=== PATIENT | male | born 1985 ===

== ENCOUNTER 2016-08-23 21:13 | Emergency (ER) | payer SELFPAY ==
[2016-08-23 21:40] VITALS: BP 136/84; PULSE 80; RESP 20; TEMP 97.9; O2SAT 98
[2016-08-23] MEDS ORDERED: Naproxen 550 mg Tab PO STA ×2 (22:16→22:18)
--- NOTE | 2016-08-23 22:33 | C.PDOC ---
History Of Present Illness A 31 year old male c/o painful lump to the left groin since yesterday. Patient denies trauma, fever, chills, dysuria, hemturia, abdominal pain, nausea, vomiting, or any other complaints. Time Seen by Provider: 08/23/16 21:58 Chief Complaint (Nursing): Abnormal Skin Integrity History Per: Patient History/Exam Limitations: no limitations Onset/Duration Of Symptoms: Days Current Symptoms Are (Timing): Still Present Severity: Mild Additional History Per: Patient Past Medical History Reviewed: Historical Data, Nursing Documentation, Vital Signs Vital Signs: Last Vital Signs Temp 97.9 F 08/23/16 21:37 Pulse 80 08/23/16 21:37 Resp 20 08/23/16 21:37 BP 136/84 08/23/16 21:37 Pulse Ox 98 08/24/16 01:52 Family History: States: Unknown Family Hx - Social History Hx Alcohol Use: Yes Hx Substance Use: No - Immunization History Hx Tetanus Toxoid Vaccination: No Hx Influenza Vaccination: No Hx Pneumococcal Vaccination: No Review Of Systems Except As Marked, All Systems Reviewed And Found Negative. Constitutional: Negative for: Fever, Chills, Other (Trauma) Gastrointestinal: Negative for: Nausea, Vomiting, Abdominal Pain Genitourinary: Positive for: Other (Groin pain). Negative for: Dysuria, Hematuria Physical Exam - Physical Exam Appears: Non-toxic, No Acute Distress Skin: Warm, Dry Head: Atraumatic, Normacephalic Eye(s): bilateral: Normal Inspection Gastrointestinal/Abdominal: Soft, No Tenderness Male Genital: Normal Inspection, No Testicular Tenderness, Inguinal Tenderness ( Enlarged left inguinal adenopethy), No Inguinal Swelling, No Scrotal Swelling, No Other (No fluctuant mass. No lesions) Neurological/Psych: Oriented x3 Gait: Steady ED Course And Treatment O2 Sat by Pulse Oximetry: 98 (Room air) Pulse Ox Interpretation: Normal Progress Note: Plans: Motrin PO, reassess and disposition. Patient was instructed to follow up with PMD within 1-2 days for wound check. Disposition Counseled Patient/Family Regarding: Diagnosis, Need For Followup, Rx Given - Disposition Referrals: [facility] [Outside] Disposition: HOME/ ROUTINE Disposition Time: 22:27 Condition: STABLE Additional Instructions: Follow up in clinic in 2 days Take meds as directed Return to ER if worsening pain, increase swelling or worse Prescriptions: Doxycycline Hyclate 100 mg PO BID #14 capsule Ibuprofen [Motrin] 600 mg PO TID #30 tab Instructions: Lymphadenopathy (ED) Print Language: DIVEHI - Clinical Impression Clinical Impression: Inguinal adenopathy - Scribe Statement The provider has reviewed the documentation as recorded by the Ivanaibe Jerson [email or web address] All medical record entries made by the Ivanaibreji were at my direction and personally dictated by me. I have reviewed the chart and agree that the record accurately reflects my personal performance of the history, physical exam, medical decision making, and the department course for this patient. I have also personally directed, reviewed, and agree with the discharge instructions and disposition.
== END 2016-08-23 22:40 | disposition home or self-care (01) ==
LOC: C.ER 21:13
DX: R59.0 Localized enlarged lymph nodes (principal)